=== PATIENT | female | born 1940 ===

== ENCOUNTER 2020-09-14 23:28 | Observation (INO) | payer MEDICARE ==
--- NOTE | 2020-09-15 00:23 | XRay Report ---
CHEST 2 VIEWS INDICATION / CLINICAL INFORMATION: Left shoulder pain. COMPARISON: None available. FINDINGS: SUPPORT DEVICES: None. HEART / MEDIASTINUM: No significant abnormality. LUNGS / PLEURA: No significant pulmonary or pleural abnormality. No pneumothorax. ADDITIONAL FINDINGS: No significant additional findings. IMPRESSION: 1. No acute findings. Signer Name: Gerald Ludwig MD Signed: 09/15/2020 12:19 AM Workstation Name: [id number]
[2020-09-15 00:59] LABS: Alanine Aminotransferase 11 units/L (7-56); Albumin 4.6 g/dL (3.9-5); BUN/Creatinine Ratio 19; Blood Urea Nitrogen 17 mg/dL (7-17); Calcium 9.5 mg/dL (8.4-10.2); Hemolysis Index 2
[2020-09-15 01:08] LABS: Basophils # (Auto) 0.1 K/mm3 (0.0-0.1); Basophils % (Auto) 0.9 % (0.0-1.8); Eosinophils # (Auto) 0.5 K/mm3 (0.0-0.4); Eosinophils % (Auto) 7.4 % (0.0-4.3); Hematocrit 38.1 % (30.3-42.9); Hemoglobin 12.6 gm/dl (10.1-14.3); Lymphocytes % (Auto) 29.9 % (13.4-35.0); Mean Corpuscular HGB Conc 33 % (30-34); Mean Corpuscular Volume 85 fl (79-97); Monocytes # (Auto) 0.4 K/mm3 (0.0-0.8); Monocytes % (Auto) 6.6 % (0.0-7.3); Platelet Count 186 K/mm3 (140-440); Red Blood Count 4.49 M/mm3 (3.65-5.03); Red Cell Distribution Width 14.1 % (13.2-15.2)
--- NOTE | 2020-09-15 02:45 | Emergency Department Report ---
ED Chest Pain HPI - General Chief Complaint: Chest Pain Stated Complaint: HIGH BP/HEADACHE/LEFT SIDE NUMBNESS PUI?: No Time Seen by Provider: 09/15/20 02:15 Source: patient Mode of arrival: Ambulatory Limitations: No Limitations - History of Present Illness Initial Comments: Patient is an 79-year-old female that presents emergency room with complaints of chest pain. Patient dates her chest pain started yesterday. Patient dates her chest pain is worsening. Patient states she is also having shoulder pain. Patient does feel like chest pain is radiating to her shoulder and down her left arm. Patient that she is also having a headache. Patient states headache in the back of her head and neck. Patient states that she at times has left arm numbness. Patient states that the chest pain is better with rest and worse with exertion and movement. Patient denies fever and chills. Patient dates chest pain and all her pain is a 10 out of 10. Patient denies recent travel. Patient denies recent international travel. Wayne rosen denies exposure to the novel coronavirus. Patient denies sick contacts. Patient denies fever and chills. Patient denies cough. Patient denies diarrhea. Patient denies coming in contact with anybody with symptoms of the novel coronavirus. MD Complaint: chest pain -: Sudden Pain Location: left chest Pain Radiation: LUE Severity: severe Severity scale (0 -10): 10 Quality: sharp - Related Data Allergies Allergy/AdvReac Type Severity Reaction Status Date / Time aspirin Allergy Hives Verified 11/15/14 16:51 latex Allergy Anaphylaxis Verified 11/15/14 16:51 Sulfa (Sulfonamide Allergy Anaphylaxis Verified 11/15/14 16:51 Antibiotics) Heart Score - HEART Score History: Moderately suspicious EKG: Non-specific Age: > 65 Risk factors: > 3 risk factors or hx of atherosclerotic disease Troponin: < normal limit HEART Score: 6 - EKG Read Time Time EKG Completed: 23:55 EKG Read Time: 23:56 ED Review of Systems ROS: Stated complaint: HIGH BP/HEADACHE/LEFT SIDE NUMBNESS Other details as noted in HPI Constitutional: denies: chills, fever Eyes: denies: eye pain, eye discharge, vision change ENT: denies: ear pain, throat pain Respiratory: denies: cough, shortness of breath, wheezing Cardiovascular: as per HPI, chest pain. denies: palpitations Endocrine: no symptoms reported Gastrointestinal: denies: abdominal pain, nausea, diarrhea Genitourinary: denies: urgency, dysuria, discharge Musculoskeletal: denies: back pain, joint swelling, arthralgia Skin: denies: rash, lesions Neurological: denies: headache, weakness, paresthesias Psychiatric: denies: anxiety, depression Hematological/Lymphatic: denies: easy bleeding, easy bruising ED Past Medical Hx - Past Medical History Previous Medical History?: Yes Hx Diabetes: Yes Hx Arthritis: Yes Additional medical history: "BREATHING PROBLEMS"..UNDIAGNOSED. HIGH CHOLESTEROL. INTERSTITIAL CYSTITIS. THYROID disease - Surgical History Past Surgical History?: Yes Additional Surgical History: TUBAL LIGATION - Family History Family history: no significant - Social History Smoking Status: Never Smoker Substance Use Type: None ED Physical Exam - General Limitations: No Limitations General appearance: alert, in no apparent distress - Head Head exam: Present: atraumatic, normocephalic - Eye Eye exam: Present: normal appearance - ENT ENT exam: Present: mucous membranes moist - Neck Neck exam: Present: normal inspection - Respiratory Respiratory exam: Present: normal lung sounds bilaterally. Absent: respiratory distress - Cardiovascular Cardiovascular Exam: Present: regular rate, normal rhythm. Absent: systolic murmur, diastolic murmur, rubs, gallop - GI/Abdominal GI/Abdominal exam: Present: soft, normal bowel sounds - Extremities Exam Extremities exam: Present: normal inspection - Back Exam Back exam: Present: normal inspection - Neurological Exam Neurological exam: Present: alert, oriented X3 - Psychiatric Psychiatric exam: Present: normal affect, normal mood - Skin Skin exam: Present: warm, dry, intact, normal color. Absent: rash ED Course Vital Signs 09/14/20 09/15/20 09/15/20 23:37 02:46 04:39 Temperature 98.6 F 98.6 F Pulse Rate 104 H 90 93 H Respiratory 18 16 18 Rate Blood Pressure 191/77 159/61 Blood Pressure 160/67 [Left] O2 Sat by Pulse 96 97 98 Oximetry - Reevaluation(s) Reevaluation #1: I discussed all results with patient. I discussed plan of care with patient. Patient agrees with plan of care and admission. Patient to be admitted to the hospitalist service. 09/15/20 02:46 - Consultations Consultation #1: Hospitalist consulted for admission. Hospitalist to admit patient. 09/15/20 02:46 LINDA score - Linda Score Age > 65: (1) Yes Aspirin use within the Past 7 Days: (0) No 3 or more CAD Risk Factors: (1) Yes 2 or more Angina events in past 24 hrs: (1) Yes Known CAD with more than 50% Stenosis: (0) No Elevated Cardiac Markers: (0) No ST Deviation Greater than 0.5mm: (0) No LINDA Score: 3 ED Medical Decision Making - Lab Data Result diagrams: 09/15/20 00:09 09/15/20 00:09 - EKG Data -: EKG Interpreted by Me EKG shows normal: sinus rhythm, axis, intervals, QRS complexes, ST-T waves Rate: normal - EKG Data Interpretation: [facility] - Radiology Data Radiology results: report reviewed, image reviewed interpreted by me: Chest x-ray: No pneumonia, no pneumothorax, no foreign body, no osseous findings, no acute findings - Medical Decision Making Patient is an 79-year-old female that presents emergency room with multiple complaints. Patient complaining of chest pain, shoulder pain, chest pain rating to her left upper extremity, headache, elevated blood pressure, left arm numbne ss. Patient had an EKG which was negative for acute finding. Patient EKG shows normal ST and sinus rhythm. Patient's EKG reviewed by me. Patient had a chest x-ray which is negative for acute finding. Patient chest x-ray was reviewed by me. Patient had labs done which were essentially unremarkable. Patient troponin was negative. Patient admitted to the hospital service for further evaluation and treatment and rule out ACS. Critical care time documented due to the multiple reassessments, prolonged time at the bedside, interpretation of diagnostics and labs. - Differential Diagnosis ACS, chest pain, arthritis, Critical Care Time: Yes Critical care time in (mins) excluding proc time.: 35 Critical care attestation.: If time is entered above; I have spent that time in minutes in the direct care of this critically ill patient, excluding procedure time. Critical Care Time: 35 minutes ED Disposition Clinical Impression: Chest pain Qualifiers: Chest pain type: unspecified Qualified Code(s): R07.9 - Chest pain, unspecified Headache Qualifiers: Headache type: unspecified Headache chronicity pattern: acute headache Intractability: not intractable Qualified Code(s): R51.9 - Headache, unspecified Disposition: OP ADMIT IP TO THIS HOSP Is pt being admited?: Yes Does the pt Need Aspirin: No Condition: Critical Time of Disposition: 02:48
[2020-09-15] MEDS ORDERED: MORPHINE 2 MG/1 ML INJ IV ONE (03:09)
[2020-09-15] MEDS ORDERED: ACETAMINOPHEN 325 MG TAB PO PRN (03:46)
[2020-09-15] MEDS ORDERED: MAGNESIUM HYDROXIDE (MOM) ORAL LIQD UDC PO PRN (03:46)
[2020-09-15] MEDS ORDERED: ONDANSETRON 4 MG/2 ML INJ IV PRN (03:46)
[2020-09-15] MEDS ORDERED: ALUM-MAG HYDROXIDE-SIMETHICONE 200-200-20MG/5ML ORAL LIQD 30 ML PO PRN (03:46)
[2020-09-15] MEDS ORDERED: METOCLOPRAMIDE 10 MG/2 ML INJ IV PRN (03:46)
[2020-09-15] MEDS ORDERED: SENNOSIDES 8.6 MG TAB PO PRN (03:46)
[2020-09-15] MEDS ORDERED: traMADol 50 MG TAB PO PRN (03:50)
[2020-09-15] MEDS ORDERED: traZODone 50 MG TAB PO PRN (03:50)
--- NOTE | 2020-09-15 03:53 | History and Physical Report ---
History of Present Illness Date of examination: 09/15/20 Date of admission: 09/15/20 Chief complaint: chest pain History of present illness: Patient is an 79-year-old female that presents emergency room with complaints of chest pain. Patient dates her chest pain started yesterday. Patient dates her chest pain is worsening. Patient states she is also having shoulder pain. Patient does feel like chest pain is radiating to her shoulder and down her left arm. Patient that she is also having a headache. Patient states headache in the back of her head and neck. Patient states that she at times has left arm numbness. Patient states that the chest pain is better with rest and worse with exertion and movement. Patient denies fever and chills. Patient dates chest pain and all her pain is a 10 out of 10. ED work up shows 6.6, hemoglobin 12.6, PLT 186, sodium 141, potassium 4.5, Cr 0.9, Glucose 205 Calcium 9.5, 0.010, Chest x-ray -no acute finding Patient seen at bedside in ED. patient alert and oriented. patient daughter at bedside. Patient came with chest pain-she reports it radiates left arm. pain level 5/10. ECHO ordered-assistant store manager operations consulted. Past History Past Medical History: diabetes, hypothyroidism, other (Hx of multiple allergies) Past Surgical History: Other Social history: no significant social history, , lives with family Family history: no significant family history Medications and Allergies Allergies Allergy/AdvReac Type Severity Reaction Status Date / Time aspirin Allergy Hives Verified 11/15/14 16:51 latex Allergy Anaphylaxis Verified 11/15/14 16:51 Sulfa (Sulfonamide Allergy Anaphylaxis Verified 11/15/14 16:51 Antibiotics) Review of Systems Constitutional: no weight loss Ears, nose, mouth and throat: no epistaxis, no hoarseness Breasts: no discharge, no pain Cardiovascular: chest pain Respiratory: no congestion Gastrointestinal: no melena Genitourinary Female: no dyspareunia, no pelvic pain Rectal: no itching, no hemorrhoids Musculoskeletal: no neck stiffness Integumentary: no rash, no pruritis Neurological: headaches Psychiatric: no suicidal ideation, no disorientation Endocrine: no excessive thirst Hematologic/Lymphatic: no easy bruising, no easy bleeding Allergic/Immunologic: no urticaria Exam - Constitutional Vitals: Temp Pulse Resp BP Pulse Ox 98.6 F 90 16 160/67 97 09/14/20 23:37 09/15/20 02:46 09/15/20 02:46 09/15/20 02:46 09/15/20 02:46 General appearance: Present: no acute distress, well-nourished - EENT Eyes: Present: PERRL ENT: hearing intact, clear oral mucosa - Neck Neck: Present: supple, normal ROM - Respiratory Respiratory effort: normal Respiratory: bilateral: CTA - Cardiovascular Heart rate: 90 Heart Sounds: Present: S1 & S2. Absent: rub, click - Extremities Extremities: pulses symmetrical, No edema Peripheral Pulses: within normal limits - Abdominal General gastrointestinal: Present: soft, non-tender, non-distended, normal bowel sounds Female genitourinary: Present: normal - Integumentary Integumentary: Present: clear, warm, dry - Musculoskeletal Musculoskeletal: gait normal, strength equal bilaterally - Psychiatric Psychiatric: appropriate mood/affect, intact judgment & insight, cooperative - Neurologic Neurologic: CNII-XII intact, moves all extremities - Allied Health Allied health notes reviewed: nursing HEART Score - HEART Score EKG: Non-specific Age: > 65 Risk factors: > 3 risk factors or hx of atherosclerotic disease Troponin: Troponin T < 0.010 ng/mL (0.00-0.029) 09/15/20 02:37 Troponin: < normal limit Results - Labs CBC & Chem 7: 09/15/20 00:09 09/15/20 00:09 Labs: Abnormal lab results 09/15/20 09/15/20 Range/Units 00:09 00:09 Eos % (Auto) 7.4 H (0.0-4.3) % Eos # (Auto) 0.5 H (0.0-0.4) K/mm3 Glucose 205 H (65-100) mg/dL Assessment and Plan - Patient Problems (1) Chest pain Current Visit: Yes Status: Acute Qualifiers: Chest pain type: unspecified Qualified Code(s): R07.9 - Chest pain, unspecified Plan to address problem: Nitro sublingual PRN ECHO-f/u with result Staff Physical Therapist consult (2) Headache Current Visit: Yes Status: Acute Qualifiers: Headache type: unspecified Headache chronicity pattern: acute headache Intractability: not intractable Qualified Code(s): R51.9 - Headache, unspecified Plan to address problem: ? cause CT of the head (3) History of hypothyroidism Current Visit: Yes Status: Acute Plan to address problem: resume home (4) Diabetes Current Visit: Yes Status: Acute Plan to address problem: Monitor blood sugar with SSI Check HGa1c (5) DVT prophylaxis Current Visit: Yes Status: Acute Plan to address problem: SC Lovenox
[2020-09-15 06:15] LABS: Creatine Kinase MB 2.9 ng/mL (0.0-4.0)
--- NOTE | 2020-09-15 08:41 | Cat Scan Report ---
Examination: CT of the head without contrast Clinical information: Left-sided headache for one day. Comparison: No relevant prior studies are available for comparison Technical: Multiple axial CT images of the head were obtained without intravenous contrast. Sagittal and coronal reformats were obtained. All CTs at this facility utilize dose reduction techniques inc luding automated exposure control, iterative reconstruction and weight based dosing when appropriate to reduce patient radiation dose to as low as reasonable achievable. Findings: INTRACRANIAL CONTENTS: There is no CT evidence of acute intracranial hemorrhage or large territorial infarct. The ventricular system is normal in size. No extra-axial fluid collection is identified. SKULL: No acute bony abnormality is visualized. ORBITS: The bilateral orbits and globes appear normal PARANASAL SINUSES / MASTOID AIR CELLS: Paranasal sinuses and mastoid air cells appear clear. Impression: 1. No CT evidence of acute intracranial process. Signer Name: Dolores Barrera MD Signed: 09/15/2020 8:36 AM Workstation Name: [id number]
[2020-09-15] MEDS: FAMOTIDINE 20 MG/2 ML INJ IV SCH ×2 (09:34→21:10)
[2020-09-15] MEDS: ENOXAPARIN 40 MG/0.4 ML INJ SUB-Q SCH (09:38)
[2020-09-15] MEDS ORDERED: ASPIRIN EC 81 MG TAB PO SCH (10:00)
[2020-09-15] MEDS ORDERED: METOPROLOL TARTRATE 25 MG TAB PO SCH (10:00)
[2020-09-15] MEDS: THYROID,PORK 60 MG TAB PO SCH (10:52)
--- NOTE | 2020-09-15 11:28 | Event Note ---
Date: 09/15/20 Patient seen and examined This is the second visit after midnight Patient admitted for chest pain, 2D echo ordered We will follow cardiology recommendation Continue current management and plan
--- NOTE | 2020-09-15 13:47 | Consultation ---
History of Present Illness Consult date: 09/15/20 History of present illness: 79F with PMHx of hypothyroidism and DM who presents with left shoulder pain. She reports that the pain started yesterday and radiates to back of her neck and across her chest. Symptoms are constant and worsened with shoulder movement but not worse with walking. She denies SOB or syncope. She is a lifelong non-smoker. Workup thus far notable for troponin x2 negative. EKG (on 09/14 at 2343) showed SR with inferior ST-depression. Past History Past Medical History: diabetes, hypothyroidism, other (Hx of multiple allergies) Past Surgical History: Other Social history: no significant social history, , lives with family Family history: no significant family history Medications and Allergies Allergies Allergy/AdvReac Type Severity Reaction Status Date / Time aspirin Allergy Hives Verified 11/15/14 16:51 latex Allergy Anaphylaxis Verified 11/15/14 16:51 Sulfa (Sulfonamide Allergy Anaphylaxis Verified 11/15/14 16:51 Antibiotics) Active Meds: Active Medications Acetaminophen (Acetaminophen 325 Mg Tab) 650 mg PO Q4H PRN PRN Reason: Pain MILD(1-3)/Fever >100.5/SHIPMAN Al Hydrox/Mg Hydrox/Simethicone (Alum-Mag Hydroxide-Simethicone [phone] Oral Liqd 30 Ml) 30 ml PO Q4H PRN PRN Reason: Indigestion Atorvastatin Calcium (Atorvastatin 40 Mg Tab) 40 mg PO QHS YOLANDA Enoxaparin Sodium (Enoxaparin 40 Mg/0.4 Ml Inj) 40 mg SUB-Q QDAY [facility]; Protocol Last Admin: 09/15/20 09:38 Dose: 40 mg Documented by: Famotidine (Famotidine 20 Mg/2 Ml Inj) 20 mg IV BID [facility] Last Admin: 09/15/20 09:34 Dose: 20 mg Documented by: Magnesium Hydroxide (Magnesium Hydroxide (Mom) Oral Liqd Udc) 30 ml PO Q4H PRN PRN Reason: Constipation Metoclopramide HCl (Metoclopramide 10 Mg/2 Ml Inj) 10 mg IV Q6H PRN PRN Reason: Nausea And Vomiting Metoprolol Tartrate (Metoprolol Tartrate 25 Mg Tab) 25 mg PO BID [facility] Last Admin: 09/15/20 09:33 Dose: 25 mg Documented by: Ondansetron HCl (Ondansetron 4 Mg/2 Ml Inj) 4 mg IV Q8H PRN PRN Reason: Nausea And Vomiting Senna (Sennosides 8.6 Mg Tab) 8.6 mg PO Q12HR PRN PRN Reason: Constipation Sodium Chloride (Sodium Chloride 0.9% 10 Ml Flush Syringe) 10 ml IV BID [facility] Last Admin: 09/15/20 09:33 Dose: 10 ml Documented by: Sodium Chloride (Sodium Chloride 0.9% 10 Ml Flush Syringe) 10 ml IV PRN PRN PRN Reason: LINE FLUSH Thyroid (Thyroid,Pork 60 Mg Tab) 30 mg PO QDAY [facility] Last Admin: 09/15/20 10:52 Dose: Not Given Documented by: Tramadol HCl (Tramadol 50 Mg Tab) 50 mg PO Q6H PRN PRN Reason: Pain, Moderate (4-6) Trazodone HCl (Trazodone 50 Mg Tab) 50 mg PO QHS PRN PRN Reason: Insomnia Review of Systems All systems: negative Physical Examination Vital Signs Temp Pulse Resp BP Pulse Ox 98.6 F 104 H 18 191/77 96 09/14/20 23:37 09/14/20 23:37 09/14/20 23:37 09/14/20 23:37 09/14/20 23:37 Narrative exam: Gen-NAD, cooperative HEENT-atraumatic, mucus membranes moist Neck-supple, no JVD Heart-RRR, no murmurs Lungs-CTAB, equal air entry b/l Abd-soft/nt/nd Neuro-A&O, no facial droop, moving extremities freely Psych-affect appropriate Ext-no pedal edema, no peripheral cyanosis Skin-warm to touch, no rash noted Results 09/15/20 00:09 09/15/20 00:09 Cardiac Enzymes 09/15/20 09/15/20 Range/Units 00:09 04:52 AST 14 (5-40) units/L CK-MB (CK-2) 2.9 (0.0-4.0) ng/mL CBC 09/15/20 Range/Units 00:09 WBC 6.6 (4.5-11.0) K/mm3 RBC 4.49 (3.65-5.03) M/mm3 Hgb 12.6 (10.1-14.3) gm/dl Hct 38.1 (30.3-42.9) % Plt Count 186 (140-440) K/mm3 Lymph # (Auto) 2.0 (1.2-5.4) K/mm3 [place] # (Auto) 0.4 (0.0-0.8) K/mm3 Eos # (Auto) 0.5 H (0.0-0.4) K/mm3 Baso # (Auto) 0.1 (0.0-0.1) K/mm3 Comprehensive Metabolic Panel 09/15/20 Range/Units 00:09 Sodium 141 (137-145) mmol/L Potassium 4.5 (3.6-5.0) mmol/L Chloride 104.6 (98-107) mmol/L Carbon Dioxide 27 (22-30) mmol/L BUN 17 (7-17) mg/dL Creatinine 0.9 (0.6-1.2) mg/dL Glucose 205 H (65-100) mg/dL Calcium 9.5 (8.4-10.2) mg/dL AST 14 (5-40) units/L ALT 11 (7-56) units/L Alkaline Phosphatase 76 (35-129) units/L Total Protein 7.4 (6.3-8.2) g/dL Albumin 4.6 (3.9-5) g/dL Assessment and Plan #Atypical angina (in elderly female with DM) -Serial troponin negative but possible inferior ST-D on EKG. #DM #Elevated BP #Hypothyroidism -No need to further check troponin. -Will check echo. -Pending echo findings, will pursue ischemic evaluation given EKG changes and risk factor of DM. -BP elevated during admission. Increase metoprolol as tolerated.
[2020-09-15] MEDS: METOPROLOL TARTRATE 50 MG TAB PO SCH (21:09)
[2020-09-16 05:53] LABS: Basophils % (Auto) 0.7 % (0.0-1.8); Eosinophils # (Auto) 0.2 K/mm3 (0.0-0.4); Eosinophils % (Auto) 3.4 % (0.0-4.3); Hematocrit 35.2 % (30.3-42.9); Hemoglobin 11.4 gm/dl (10.1-14.3); Lymphocytes # (Auto) 1.6 K/mm3 (1.2-5.4); Lymphocytes % (Auto) 21.9 % (13.4-35.0); Mean Corpuscular HGB Conc 33 % (30-34); Mean Corpuscular Volume 86 fl (79-97); Monocytes # (Auto) 0.6 K/mm3 (0.0-0.8); Monocytes % (Auto) 8.3 % (0.0-7.3); Platelet Count 164 K/mm3 (140-440); Red Blood Count 4.11 M/mm3 (3.65-5.03)
[2020-09-16 06:10] LABS: BUN/Creatinine Ratio 16; Blood Urea Nitrogen 14 mg/dL (7-17); Calcium 8.9 mg/dL (8.4-10.2); Hemolysis Index 4
[2020-09-16] MEDS: ENOXAPARIN 40 MG/0.4 ML INJ SUB-Q SCH (09:26)
[2020-09-16] MEDS: METOPROLOL TARTRATE 50 MG TAB PO SCH (09:26)
[2020-09-16] MEDS: FAMOTIDINE 20 MG/2 ML INJ IV SCH (09:26)
[2020-09-16] MEDS: THYROID,PORK 60 MG TAB PO SCH (09:27)
--- NOTE | 2020-09-16 14:27 | Progress Note ---
Assessment and Plan - Patient Problems (1) Pain of left shoulder joint on movement Current Visit: Yes Status: Acute Plan to address problem: Patient's presentation is not consistent with a cardiac etiology of left shoulder pain. I would recommend an orthopedic consultation to evaluate this patient's left shoulder pain and decreased range of motion. No further cardiac work-up, we will follow intermittently. Subjective Date of service: 09/16/20 Interval history: 79-year-old woman who presented to the hospital with left shoulder, left arm and left upper back pain. Cardiac work-up has been negative with negative EKG, negative troponin levels. Currently, patient is on the telemetry floor, still has severe left shoulder pa in. She is unable to abduct her arm at the shoulder even up to 5 degrees. She states that this condition is not chronic but started on the day prior to her presentation to the hospital. Objective Vital Signs Temp Pulse Resp BP Pulse Ox 09/16/20 07:25 97.8 F 79 18 128/59 97 09/16/20 03:53 98.7 F 82 16 136/57 99 09/15/20 23:49 98.5 F 84 17 147/75 98 09/15/20 22:00 82 09/15/20 21:57 92 H 09/15/20 21:09 92 H 148/68 09/15/20 19:51 98.5 F 92 H 18 146/68 97 09/15/20 16:05 98.1 F 88 18 154/68 99 - Physical Examination General: No Apparent Distress HEENT: Positive: PERRL Neck: Positive: neck supple Cardiac: Positive: Reg Rate and Rhythm Lungs: Positive: clear to auscultation Neuro: Positive: Grossly Intact Abdomen: Positive: Soft Skin: Positive: Clear Musculoskeletal: other (Marked decreased range of motion, and pain involving the left shoulder and arm) Gait: Normal Gait Extremities: Absent: edema - Labs and Meds CBC 09/16/20 Range/Units 04:32 WBC 7.1 (4.5-11.0) K/mm3 RBC 4.11 (3.65-5.03) M/mm3 Hgb 11.4 (10.1-14.3) gm/dl Hct 35.2 (30.3-42.9) % Plt Count 164 (140-440) K/mm3 Lymph # (Auto) 1.6 (1.2-5.4) K/mm3 [place] # (Auto) 0.6 (0.0-0.8) K/mm3 Eos # (Auto) 0.2 (0.0-0.4) K/mm3 Baso # (Auto) 0.0 (0.0-0.1) K/mm3 Comprehensive Metabolic Panel 09/16/20 Range/Units 04:32 Sodium 139 (137-145) mmol/L Potassium 3.8 (3.6-5.0) mmol/L Chloride 103.2 (98-107) mmol/L Carbon Dioxide 25 (22-30) mmol/L BUN 14 (7-17) mg/dL Creatinine 0.9 (0.6-1.2) mg/dL Glucose 180 H (65-100) mg/dL Calcium 8.9 (8.4-10.2) mg/dL
--- NOTE | 2020-09-16 14:35 | Discharge Summary ---
Providers - Providers Date of Admission: 09/15/20 02:54 Date of discharge: 09/16/20 Attending physician: JUDIE TALBOT 09/15/20 03:46 Consult to Physician [CONS] Stat Comment: Consulting Provider: SERVANOD HERNANDEZ Physician Instructions: Reason For Exam: chest pain Primary care physician: CUST[employer] [facility]AN CON[employer]TER Hospitalization Condition: Critical Hospital course: Patient is an 79-year-old female that presents emergency room with complaints of chest pain started a day before this admission. Patient states she is also having shoulder pain and neck pain. Patient does feel like chest pain is radiating to her shoulder and down her left arm. P ED work up shows 6.6, hemoglobin 12.6, PLT 186, sodium 141, potassium 4.5, Cr 0.9, Glucose 205 Calcium 9.5, 0.010, Chest x-ray -no acute finding Patient seen at bedside in ED. patient alert and oriented. patient daughter at bedside. Patient admitted to the hospital for further evaluation and management ECHO ordered-aoc director intelligence officer consulted. 2D echo showed preserved EF. Cardiology recommended medical management. Head CT showed no acute infarct, neck CT showed degenerative changes of the ce rvical spine but no inflammatory changes Left shoulder joint x-ray showed Distal rotator cuff hydroxyapatite deposition disease/calcific tendinitis. Patient's left shoulder joint x-ray findings were discussed with orthopedic surgeon Dr. Potter and he recommended to place on a sling and discharged the patient with as needed pain medications and with outpatient follow-up with him in 1 week. Discharge planning management was thoroughly discussed with the patient and she was then discharged home in stable condition with outpatient follow-up. Disposition: - TO HOME OR SELFCARE Final Discharge Diagnosis (Prints w/discharge instructions): Atypical chest pain, likely musculoskeletal. Left shoulder pain due to distal rotator cuff tendinitis. Hypertension. Advanced age Time spent for discharge: 34 minutes Core Measure Documentation - Palliative Care Palliative Care/ Comfort Measures: Not Applicable - Core Measures Any of the following diagnoses?: none Exam - Physical Exam Narrative exam: GENERAL: well-developed elderly well-nourished -[place] female lying on bed appeared to be in no discomfort. HEENT: Normocephalic. Atraumatic. No conjunctival congestion or icterus. Patient has moist mucous membranes. NECK: Supple. Trachea midline. CHEST/LUNGS: Clear to auscultated bilaterally, breathing nonlabored. No wheezes crackles or rhonchi. HEART/CARDIOVASCULAR: Regular in rate and rhythm. S1 and S2 positive. ABDOMEN: Abdomen is soft, nontender. Patient has normal bowel sounds. SKIN: There is no rash. Warm and dry. NEURO: No focal motor deficit. Follows command. MUSCULOSKELETAL: Left shoulder joint pain and limited movement EXTRIMITY: No edema, no cyanosis or clubbing. PSYCH: Cooperative. - Constitutional Vitals: Temp Pulse Resp BP Pulse Ox 97.8 F 79 18 128/59 97 09/16/20 07:25 09/16/20 07:25 09/16/20 07:25 09/16/20 07:25 09/16/20 07:25 Plan Activity: advance as tolerated Weight Bearing Status: Non-Weight Bearing Diet: low fat, low salt Durable Medical Equipment Needed Upon Discharge: other (arm brace/sling) Additional Instructions: Follow-up with orthopedic surgeon-Dr. Potter in 1 week Follow up with: AMSON METZ MD [Staff Physician] - 7 Days PRIMARY MD KIMBERLYN [Primary Care Provider] - 7 Days FRANCISCO POTTER MD [Staff Physician] - 7 Days Prescriptions: Metoprolol [Lopressor TAB] 50 mg PO BID #60 tablet traMADoL [Ultram 50 MG tab] 50 mg PO Q6H PRN #14 tablet PRN Reason: Pain, Moderate (4-6)
--- NOTE | 2020-09-16 14:41 | XRay Report ---
LEFT SHOULDER 3 VIEWS INDICATION: Left shoulder pain. COMPARISON: No relevant prior imaging study available. FINDINGS: No acute, displaced fracture or dislocation is seen. There is a 7 mm calcification lateral to the gre ater tuberosity consistent with calcific tendinitis/hydroxyapatite deposition. Mild acromioclavicular and glenohumeral degenerative changes are noted. IMPRESSION: 1. 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 Signer Name: Chino Manning MD Signed: 09/16/2020 2:37 PM Workstation Name: [id number]
--- NOTE | 2020-09-16 15:27 | Cat Scan Report ---
CT neck wo con INDICATION / CLINICAL INFORMATION: 79 years Female; pain. TECHNIQUE: Contiguous thin cut axial images obtained through the neck following IV contrast. Sagittal and gibbs l reconstructions performed by the technologist. All CT scans at this location are performed using CT dose reduction for ALARA by means of automated exposure control. COMPARISON: None available. FINDINGS: MUCOSAL SPACE: There is beam hardening artifact resulting from the patient's dental amalgam. However, no definitive focal lesions are seen involving the visualized oral pharyngeal soft tissues. The epig lottis appears appropriate in size at. There is mild asymmetry of the laryngeal soft tissues which ma y reflect anatomic variation. Again, no definitive focal lesions are identified. There is no signific ant abnormality involving the visualized upper esophagus. LYMPH NODES: There are a few scattered cervical lymph nodes which are nonspecific though likely react miguelangel. These nodes measure less than 1 cm in greatest dimension. SALIVARY GLANDS: The parotid and submandibular glands demonstrate fairly symmetric attenuation withou t calcification. THYROID GLAND: Unremarkable. PARANASAL SINUSES: The visualized paranasal sinuses are pneumatized. SPINE: There is mild reversal of the cervical lordosis with multilevel degenerative changes. The hype rtrophic changes along the posterior odontoid effaces the subarachnoid space and slightly encroach on the ventral cord. The facet joint hypertrophy is most notable on the right at C2-3 and on the left a t C4-5. VASCULAR STRUCTURES: There is moderate to focal atherosclerotic calcification involving right carotid bifurcation on this noncontrast study. IMPRESSION: 1. There is no clear CT evidence of significant inflammatory changes involving the soft tissues of th e neck on this noncontrast study at. There are multilevel degenerative the changes of the cervical sp ine as detailed above. Correlation would be needed regarding emergent presentation and history of "pa in on left side of neck that radiates down left arm". The study was specified as stat and dictated on an emergent basis at 2:21 PM Central standard time. Signer Name: Gregory Chatman MD Signed: 09/16/2020 3:23 PM Workstation Name: [id number]
[2020-09-16 18:36] VITALS: BP 156/68
== END 2020-09-16 20:20 | disposition home or self-care (01) ==
LOC: ED 23:28 → 4A 09-15 02:54
PROVIDERS: ADMIT Internal Medicine Geriatric Medicine; ATTEND Internal Medicine
DX: R07.89 Other chest pain (principal); I20.8 Other forms of angina pectoris; E11.9 Type 2 diabetes mellitus without complications; E03.9 Hypothyroidism, unspecified; R51.9 Headache, unspecified; R03.0 Elevated blood-pressure reading, without diagnosis of hypertension; M19.90 Unspecified osteoarthritis, unspecified site; Z98.890 Other specified postprocedural states; Z79.82 Long term (current) use of aspirin; Z98.51 Tubal ligation status
CPT/HCPCS: 36415; 70450; 70490; 71046; 73030; 80048; 80053; 82550; 82553; 82962; 83036; 84484; 85025; 93005; 93306; 96372; 96374; 96375; 96376; 99291; A9270; G0378; J1650; J2270